=== PATIENT | female | born 1980 | race Caucasian/White ===

== ENCOUNTER → 2020-09-19 | Outpatient (CLI) | payer OTHER ==
--- NOTE | 2020-09-19 16:50 | Diagnostic Imaging Report ---
Digital mammogram bilateral diagnostic. INDICATION: Bilateral breast pain and bilateral nipple discharge. Right breast lump. COMPARISON: This study was compared to the prior exam of 02/02/2017. The fibroglandular tissue in both breasts is dense. This does limit the sensitivity of this exam. A marker was placed at the area of concern in the 4 to 5 o'clock position of the right breast at middle depth. There is no primary or secondary sign of malignancy in this region. Even so, I would recommend that ultrasound be performed for further study. There is no abnormality in either retroareolar region to account for the patient's nipple discharge. Ultrasound of both retroareolar regions would be recommended for further evaluation. There is no primary or secondary sign of malignancy noted otherwise. IMPRESSION: 1. There is no evidence of malignancy and there is no abnormality to account for the patient's bilateral nipple discharge or breast pain. Ultrasound of both breasts would be recommended for further study. ACR category 0 ACR BI-RADS Category 0: Incomplete. (Needs additional imaging evaluation). Result letter will be mailed to the patient. Note: At least 10% of breast cancer is not imaged by mammography. Dictated by: Dictated on workstation # [id number]
--- NOTE | 2020-09-19 16:57 | Diagnostic Imaging Report ---
INDICATION: Bilateral breast nipple discharge, right breast lump and pain. EXAMINATION: Bilateral breast ultrasound, limited. FINDINGS: The patient's baseline diagnostic mammogram performed earlier today noted dense fibroglandular tissue in both breasts but failed to show any sign of a discrete mass. There is no abnormality of either retroareolar lesion to account for the patient's nipple discharge. The images of the left breast do show that there are two small subcentimeter cysts in the 9 o'clock position of the retroareolar region. These measure 8 x 7 and 4 x 7 mm. These cysts have a generally benign appearance. There is no other discrete solid or cystic mass within the left breast. There is no sign of an intraductal mass to account for the patient's nipple discharge either. By history, patient has a palpable abnormality in the 4 o'clock position of the right breast. The ultrasound examination of this area failed to show any discrete solid or cystic mass. However, in the 4 o'clock position of the retroareolar region of the right breast there is a 1.8 x 0.9 x 1.1 cm lobulated smoothly marginated solid lesion. I suspect that this is a benign process such as a fibroadenoma. A malignant lesion cannot be entirely excluded, however. I would recommend that ultrasound-guided biopsy of this lesion be performed to establish a tissue diagnosis. There is no other mass or cyst within the right breast. There is no intraductal mass to account for the patient's nipple discharge either. IMPRESSION: 1. There is a 1.8 x 0.9 x 1.1 cm solid lobulated mass in the retroareolar region of the right breast. While this is most likely a benign process, a malignant lesion cannot be entirely excluded. Recommendations as above. 2. There is no evidence for a mass in the 4 o'clock position of the right breast in the region of the patient's palpable abnormality.. 3. There are two small benign-appearing cysts in the left breast. 4. There is no retroareolar abnormally to account for the patient's nipple discharge. 5. These results were discussed with Estella Garcia APRN. ACR BI-RADS Category 4A: Low suspicion of malignancy. Follow Up Interval: Now Result letter will be mailed to the patient. Note: At least 10% of breast cancer is not imaged by mammography. Dictated by: Dictated on workstation # [id number]
== END ==
LOC: RAD 13:15
PROVIDERS: ATTEND Nurse Practitioner Family
DX: N64.52 Nipple discharge (principal); N63.10 Unspecified lump in the right breast, unspecified quadrant; N60.02 Solitary cyst of left breast
CPT/HCPCS: 76642; 77066; G0279; 77062

== ENCOUNTER → 2020-10-02 | Outpatient (CLI) | payer OTHER ==
[~2020-10-02] VITALS: Ht 162.6 cm; Wt 71.8 kg
[~2020-10-02] MED LIST: LIDOCAINE 1% INJ 20 ML 20 ML VIAL INJ ONE
--- NOTE | 2020-10-02 10:33 | Diagnostic Imaging Report ---
INDICATION: Right breast mass. Patient presents for ultrasound-guided biopsy. The patient was brought to the sonographic suite and placed on table in supine position. Ultrasound imaging of the right breast was performed to evaluate appropriate entry site. Right breast was prepped and draped in usual sterile fashion. Small amount 1% lidocaine was utilized for local anesthesia. Total of 3 core biopsies were obtained of the lobulated hypoechoic solid mass in the retroareolar 4:00 location right breast utilizing the 14-gauge achieve needle. A marker clip was then deployed. Hemostasis was obtained using manual compression. Patient tolerated procedure well and obtained a post procedure mammogram in 6. Patient left the department in stable condition. IMPRESSION: Successful ultrasound-guided core biopsy of the lobulated hypoechoic solid mass in the retroareolar right breast. Pathology results are currently pending. Dictated by: Dictated on workstation # [id number]
--- NOTE | 2020-10-02 13:44 | Diagnostic Imaging Report ---
INDICATION: Right breast mass. Patient is status post ultrasound-guided core biopsy. FINDINGS: Unilateral right CC and ML mammography was performed post ultrasound guided biopsy. There is a marker clip identified in the retroareolar and lower inner aspect of the right breast, status post biopsy. IMPRESSION: Marker clip, as described. Dictated by: Dictated on workstation # [id number]
== END ==
LOC: RAD 08:30
PROVIDERS: ATTEND Nurse Practitioner Family
DX: N63.10 Unspecified lump in the right breast, unspecified quadrant (principal)
CPT/HCPCS: 19083; 77065; A4648; G0279